=== PATIENT | female | born 1980 | race Caucasian/White ===

== ENCOUNTER 2022-06-04 15:47 | Observation (INO) ==
[2022-06-04] MEDS ORDERED: FIORICET TAB PO PRN (17:45)
[2022-06-04 18:11] LABS: BASOPHILS # (AUTO) 0.1 X10^3/uL (0.0-0.1); BASOPHILS % (AUTO) 1.5 % (0.2-1.0); EOSINOPHILS # (AUTO) 0.8 x10^3/uL (0.0-0.2); EOSINOPHILS % (AUTO) 9.6 % (0.9-2.9); HEMATOCRIT 36.2 % (36.0-47.0); HEMOGLOBIN 12.8 g/dL (12.0-16.0); LYMPHOCYTES # (AUTO) 2.1 X10^3/uL (1.3-2.9); LYMPHOCYTES % (AUTO) 26.6 % (21.0-51.0); MEAN CORPUSCULAR HEMOGLOBIN 31.6 pg (27.0-34.0); MEAN CORPUSCULAR HGB CONC 35.4 g/dL (33.0-35.0); MEAN CORPUSCULAR VOLUME 89.3 fL (80.0-100.0); MEAN PLATELET VOLUME 7.2 fL (7.4-11.0); MONOCYTES # (AUTO) 0.4 x10^3/uL (0.3-0.8); NEUTROPHILS # (AUTO) 4.5 x10^3/uL (2.2-4.8); NEUTROPHILS % (AUTO) 57.3 % (42.0-75.0); RED BLOOD COUNT 4.05 X10^6/uL (3.5-5.4); RED CELL DISTRIBUTION WIDTH 12.1 % (11.6-16.5); WHITE BLOOD COUNT 7.9 X10^3/uL (3.6-10.0)
[2022-06-04 18:30] LABS: ALANINE AMINOTRANSFERASE 20 Units/L (12-78); ALBUMIN 3.3 g/dL (3.4-5.0); ALKALINE PHOSPHATASE 53 Units/L (46-116); ASPARTATE AMINO TRANSFERASE 29 Units/L (15-37); BLOOD UREA NITROGEN 9 mg/dL (7-18); CALCIUM 8.4 mg/dL (8.5-10.1); CARBON DIOXIDE 29.9 mmol/L (21-32); CHLORIDE 107 mmol/L (98-107); CREATININE 0.65 mg/dL (0.55-1.02); SODIUM 143 mmol/L (136-145); TOTAL PROTEIN 6.2 g/dL (6.4-8.2); TSH (3RD GENERATION) 0.447 uIU/mL (0.358-3.74); eGFR NON BLACK RACES > 60 (>60)
[2022-06-04] MEDS: NS 1,000 ML IV 1,000 ML IV SCH (19:16)
[2022-06-04] MEDS ORDERED: MICRO K EXTEN CAP 10 MEQ PO PRN (20:34)
[2022-06-04] MEDS ORDERED: KLOR-CON PO PRN (20:34)
[2022-06-04] MEDS ORDERED: K-DUR TAB 20 MEQ PO PRN (20:34)
[2022-06-05] MEDS: TORADOL 30 MG VIAL IVP PRN ×2 (00:18→08:20)
[2022-06-05 06:17] LABS: BASOPHILS # (AUTO) 0.1 X10^3/uL (0.0-0.1); BASOPHILS % (AUTO) 1.3 % (0.2-1.0); EOSINOPHILS # (AUTO) 0.8 x10^3/uL (0.0-0.2); EOSINOPHILS % (AUTO) 11.9 % (0.9-2.9); HEMATOCRIT 37.9 % (36.0-47.0); HEMOGLOBIN 13.2 g/dL (12.0-16.0); LYMPHOCYTES # (AUTO) 2.3 X10^3/uL (1.3-2.9); LYMPHOCYTES % (AUTO) 32.6 % (21.0-51.0); MEAN CORPUSCULAR HEMOGLOBIN 30.9 pg (27.0-34.0); MEAN CORPUSCULAR HGB CONC 34.7 g/dL (33.0-35.0); MEAN PLATELET VOLUME 7.3 fL (7.4-11.0); MONOCYTES # (AUTO) 0.4 x10^3/uL (0.3-0.8); MONOCYTES % (AUTO) 5.2 % (0.0-13.0); NEUTROPHILS # (AUTO) 3.5 x10^3/uL (2.2-4.8); RED BLOOD COUNT 4.26 X10^6/uL (3.5-5.4); RED CELL DISTRIBUTION WIDTH 12.5 % (11.6-16.5); WHITE BLOOD COUNT 7.1 X10^3/uL (3.6-10.0)
[2022-06-05 06:32] LABS: ALANINE AMINOTRANSFERASE 18 Units/L (12-78); ALBUMIN 3.2 g/dL (3.4-5.0); ALKALINE PHOSPHATASE 48 Units/L (46-116); ASPARTATE AMINO TRANSFERASE 24 Units/L (15-37); BLOOD UREA NITROGEN 8 mg/dL (7-18); CALCIUM 8.1 mg/dL (8.5-10.1); CARBON DIOXIDE 24.7 mmol/L (21-32); CHLORIDE 109 mmol/L (98-107); COR CA(FOR HYPOALB) 8.7 mg/dL (8.5-10.1); CREATININE 0.61 mg/dL (0.55-1.02); SODIUM 143 mmol/L (136-145); TOTAL PROTEIN 6.2 g/dL (6.4-8.2); eGFR NON BLACK RACES > 60 (>60)
[2022-06-05] MEDS: NS 1,000 ML IV 1,000 ML IV SCH ×2 (08:20→19:57)
--- NOTE | 2022-06-05 12:38 | DR.H&P ---
H&P - History & Physical for Day of: H&P Date: 06/04/22 - Chief Complaint Chief Complaint: INTRACTABLE HEADACHE, DIZZINESS - History of Present Illness History of Present Illness: IS A 41 YEAR OLD PATIENT OF OURS. SHE PRESENTED TO THE HOSPITAL A DIRECT ADMISSION DUE TO COMPLAINTS OF SEVERE, INTRACTABLE HEADACHE FOR THE PAST 18 DAYS. PATIENT DESCRIBES PAIN THROBBING, POUNDING, AND CONSTANT. PAIN IS LOCATED TO THE LEFT OCCIPITAL LOBE. SHE RATES PAIN A 8/10 ON ARRIVAL. AGGRAVATING FACTORS INCLUDE MOVEMENT. SHE DENIES PHOTOPHOBIA, NAUSEA, OR VOMITING. SHE DOES ADMIT TO DIZZINESS AT TIMES. SHE WAS PRESCRIBED IBUPROFEN 800MG AND FIORICET TABLETS IN THE OFFICE. SHE REPORTS ONLY MILD IMPROVEMENT IN PAIN WHEN TAKING THE IBUPROFEN AND FIORICET. SHE WAS SEEN AT [facility] IN [place], [place] ON 05/27/22. SHE HAD A NEGATIVE BRAIN CT AT THAT TIME. ADDITIONALLY, SHE HAD NEGATIVE LABWORK WITH THE EXCEPTION OF HER TSH INDICATING THAT HER THYROID WAS HYPERACTIVE. PATIENT REPORTS A HISTORY OF HYPOTHYROIDISM AND REPORTS THAT HER MEDICATION DOSAGE HASNT CHANGED IN YEARS. SHE REPORTS HAVING AN ELEVATED TSH A FEW MONTHS AGO. ON ARRIVAL TO THE HOSPITAL, VITALS WERE: 98.4-20-75-98%-158/89. LABS WERE OBTAINED. WBC 7.9, RBC 4.05, HGB 12.8, HCT 36.2, PLT COUNT 252, SODIUM 143, POTASSIUM 3.7, CHLORIDE 107, CARBON DIOXIDE 29.9, BUN 9, CREATININE 0.65, GLUCOSE 98, CALCIUM 8.4, TOTAL BILI 0.30, AST 29, ALT 20, ALK PHOS 53, TOTAL PROTEIN 6.2, ALBUMIN 3.3, FREE T4 1.00, TSH 3RD 0.447. COVID, INFLUENZA, AND RSV NEGATIVE. SHE WAS STARTED ON NORMAL SALINE AT 80 ML/HR, FIORICET 2 TABS PO Q8H PRN, DEPAKOTE 250MG PO BID, N APROSYN 500MG BID, AND TORADOL 30MG IV Q6H PRN. WE WILL RESUME HER HOME MEDICATIONS OF PRAMIPEXOLE, PANTOPRAZOLE, SYNTHROID, AND FOLIC ACID. WE WILL OBTAIN A BRAIN MRI WITHOUT CONTRAST AND A THYROID ULTRASOUND. OTHERWISE, WE WILL FOLLOW-UP WITH AM LABS AND CONTINUE TO MONITOR. TIME SPENT ON CLINICAL ASSESSMENT, REVIWING LABS AND IMAGING, DECISION MAKING, AND DOCUMENTATION GREATER THAN 75 MINUTES. - Past Medical History Past Medical History: GERD, Hypothyroidism - Past Surgical History Surgical History: , Cholecystectomy - Family History Family Medical History: Diabetes Mellitus, Cancer, Hypertension - Social History Alcohol Use: None Drug Use: None - Medications Home Medications: No Known Drug Allergies Allergy (Verified 10/19/18 07:58) onion Allergy (Verified 06/04/22 17:40) CONTINUE taking the following medications folic acid 1 mg tablet 1 tab PO QDAY 06/04/22 [History] ibuprofen 600 mg tablet 1 tab PO TID PRN 06/04/22 [History] levothyroxine 175 mcg tablet (Synthroid) 1 tab PO QDAY 06/04/22 [History] pramipexole 0.25 mg tablet 1 tab PO QPM 06/04/22 [History] - Review of Systems Constitutional: No Symptoms Reported Eyes: No Symptoms Reported ENT: No Symptoms Reported Respiratory: No Symptoms Reported Cardiovascular: Light Headedness Gastrointestinal: No Symptoms Reported Genitourinary: No Symptoms Reported Musculoskeletal: No Symptoms Reported Skin: No Symptoms Reported Neurological: Other (HEADACHE ) - Physical Exam Vital Signs: Temperature 97.8 F Pulse Rate [Right] 78 Respiratory Rate 16 Blood Pressure [Left Arm] 138/69 Blood Pressure 108/71 O2 Sat by Pulse Oximetry 98 Oriented: Normal Eyes: Normal Ear: Normal Nose: Normal Throat: Normal Respiratory: Clear Throughout Cardiovascular: Normal : Normal Auscultation: Bowel Sounds: Normal Palpation: Normal Tenderness: Normal Skin: Normal Musculoskeletal: Normal Psychiatric: Normal Mood Description: Calm Affect: Normal Speech Pattern: Clear - Assessment/Plan (1) Intractable headache Qualifiers: Headache type: unspecified Headache chronicity pattern: acute headache Qualified Code(s): R51.9 - Headache, unspecified Status: Acute Plan: ADMIT, NORMAL SALINE AT 80 ML/HR, FIORICET 2 TABS PO Q8H PRN, DEPAKOTE 250MG PO BID, NAPROSYN 500MG BID, AND TORADOL 30MG IV Q6H PRN. WE WILL RESUME HER HOME MEDICATIONS OF PRAMIPEXOLE, PANTOPRAZOLE, SYNTHROID, AND FOLIC ACID. OBTAIN BRAIN MRI, OBTAIN THYROID US (2) Dizziness Status: Acute (3) Hypothyroidism Qualifiers: Hypothyroidism type: acquired Qualified Code(s): E03.9 - Hypothyroidism, unspecified Status: Chronic (4) GERD (gastroesophageal reflux disease) Qualifiers: Esophagitis presence: esophagitis presence not specified Qualified Code(s): K21.9 - Gastro-esophageal reflux disease without esophagitis Status: Chronic - Allergies Allergies/Adverse Reactions: Allergies Allergy/AdvReac Type Severity Reaction Status Date / Time No Known Drug Allergies Allergy Verified 10/19/18 07:58 onion Allergy Verified 06/04/22 17:40
[2022-06-05] MEDS: DEPAKOTE D.R. TAB PO SCH ×2 (13:31→20:46)
[2022-06-05] MEDS: NAPROSYN PO SCH ×2 (13:32→20:46)
[2022-06-05] MEDS: PROTONIX TAB 40 MG PO SCH ×2 (13:32→20:47)
[2022-06-05] MEDS: INDERAL LA 60 MG CAP PO SCH (16:15)
[2022-06-05] MEDS: SYNTHROID 175 mcg TAB PO SCH (16:45)
--- NOTE | 2022-06-05 16:51 | US ---
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 Left lobe measures 2.0 x 0.8 x 1.0 cm. Echotexture is heterogeneous. No increased vascularity is seen. No jugular lymphadenopathy is seen.In the posterior aspect of the right lobe there is a well-circumscribed hypoechoic nodule measuring 7 x 4 x 5 mm, TI rads level 4.In the left lobe there is a rim calcified cyst or nodule with calcifications limiting evaluation. It measures 7 x 7 x 6 mm. It is TI rads level 4.IMPRESSIONTwo small thyroid nodules are seen. No further follow-up is needed based upon TI rads criteria.Electronically signed by: Waqar Feliciano (Jun 05, 2022 16:49:44)
[2022-06-05] MEDS ORDERED: MIRAPEX TAB 0.25 MG PO SCH (21:00)
[2022-06-06 05:55] LABS: BASOPHILS # (AUTO) 0.1 X10^3/uL (0.0-0.1); BASOPHILS % (AUTO) 0.8 % (0.2-1.0); EOSINOPHILS # (AUTO) 0.9 x10^3/uL (0.0-0.2); EOSINOPHILS % (AUTO) 9.5 % (0.9-2.9); HEMATOCRIT 35.1 % (36.0-47.0); HEMOGLOBIN 12.6 g/dL (12.0-16.0); LYMPHOCYTES # (AUTO) 2.3 X10^3/uL (1.3-2.9); LYMPHOCYTES % (AUTO) 23.2 % (21.0-51.0); MEAN CORPUSCULAR HEMOGLOBIN 31.7 pg (27.0-34.0); MEAN CORPUSCULAR HGB CONC 35.8 g/dL (33.0-35.0); MEAN CORPUSCULAR VOLUME 88.6 fL (80.0-100.0); MEAN PLATELET VOLUME 7.6 fL (7.4-11.0); MONOCYTES # (AUTO) 0.5 x10^3/uL (0.3-0.8); MONOCYTES % (AUTO) 5.5 % (0.0-13.0); RED BLOOD COUNT 3.96 X10^6/uL (3.5-5.4); RED CELL DISTRIBUTION WIDTH 12.4 % (11.6-16.5); WHITE BLOOD COUNT 9.8 X10^3/uL (3.6-10.0)
[2022-06-06 06:15] LABS: ALANINE AMINOTRANSFERASE 18 Units/L (12-78); ALBUMIN 2.9 g/dL (3.4-5.0); ALKALINE PHOSPHATASE 45 Units/L (46-116); ASPARTATE AMINO TRANSFERASE 23 Units/L (15-37); BLOOD UREA NITROGEN 8 mg/dL (7-18); CALCIUM 8.1 mg/dL (8.5-10.1); CARBON DIOXIDE 25.1 mmol/L (21-32); CHLORIDE 109 mmol/L (98-107); CREATININE 0.56 mg/dL (0.55-1.02); SODIUM 141 mmol/L (136-145); TOTAL PROTEIN 5.5 g/dL (6.4-8.2); eGFR NON BLACK RACES > 60 (>60)
[2022-06-06] MEDS ORDERED: KLOR-CON PO PRN (06:41)
[2022-06-06] MEDS: NAPROSYN PO SCH (08:30)
[2022-06-06] MEDS: SYNTHROID 175 mcg TAB PO SCH (08:30)
[2022-06-06] MEDS: DEPAKOTE D.R. TAB PO SCH (08:31)
[2022-06-06] MEDS: PROTONIX TAB 40 MG PO SCH (08:31)
[2022-06-06] MEDS: INDERAL LA 60 MG CAP PO SCH (08:31)
[2022-06-06] MEDS: NS 1,000 ML IV 1,000 ML IV SCH (08:32)
[2022-06-06] MEDS ORDERED: FOLIC ACID TAB 1 MG PO SCH (09:00)
[2022-06-06] MEDS: TORADOL 30 MG VIAL IVP PRN (11:26)
[2022-06-06 13:02] VITALS: BP 116/68
--- NOTE | 2022-06-07 10:29 | W.DIS.FURT ---
Summary of Discharge Discharge Summary of Date Date of Exam: 06/06/22 Admission Date Date of Admission: 06/05/22 Admission Diagnosis Patient Problems (Updated 06/05/22 @ 12:38 by Bola Orta) Intractable headache (Acute) R51.9 Dizziness (Acute) R42 Hypothyroidism (Chronic) E03.9 GERD (gastroesophageal reflux disease) (Chronic) K21.9 Hospital Course: Pt is a 41 year old female past medical history of Hypothyroidism admitted for intractable headache. She reports symptoms have been occurring for over a month. Labs/imaging: Wbc 9.8, Hgb 12.6, Plt 259, Na 141, K 3.7, Creatinine 0.56, Glucose 103. Pt does not report or are there any signs of neurological deficits, nausea, vomiting, vision or vision changes. MRI ordered however machine is down and not available for a few days. CTA head was ordered but not approved by insurance. Pt states she wants to go home and will continue her care outpatient with her pcp. Pt discharged in stable condition, instructed to follow up with pcp in 1 week. Vital Signs: Vital Signs (72 hours) 06/04/22 17:31 06/04/22 19:04 06/04/22 20:04 Temperature Pulse Rate [Right] Respiratory Rate 20 20 Blood Pressure [Left Arm] O2 Sat by Pulse Oximetry Oxygen Delivery Method Room Air 06/04/22 19:00 06/04/22 20:00 06/05/22 00:18 Temperature 98.4 F Pulse Rate [Right] Respiratory Rate 20 24 Blood Pressure [Left Arm] 158/89 O2 Sat by Pulse Oximetry 98 Oxygen Delivery Method Room Air Room Air 06/05/22 00:00 06/05/22 00:48 06/05/22 04:00 Temperature 98.0 F 98 F Pulse Rate [Right] 75 79 Respiratory Rate 20 18 14 Blood Pressure [Left Arm] 141/63 123/60 O2 Sat by Pulse Oximetry 98 97 Oxygen Delivery Method Room Air Room Air 06/05/22 07:57 06/05/22 08:20 06/05/22 08:50 Temperature 97.8 F Pulse Rate [Right] 78 Respiratory Rate 18 20 16 Blood Pressure [Left Arm] 138/69 O2 Sat by Pulse Oximetry 98 Oxygen Delivery Method Room Air 06/05/22 12:00 06/05/22 18:05 06/05/22 18:07 Temperature 98.0 F 98.1 F Pulse Rate [Right] 68 70 Respiratory Rate 18 18 Blood Pressure [Left Arm] 133/77 126/78 O2 Sat by Pulse Oximetry 99 97 Oxygen Delivery Method Room Air Room Air Room Air 06/05/22 20:00 06/05/22 19:00 06/06/22 00:00 Temperature 98 F 98.4 F Pulse Rate [Right] 73 67 Respiratory Rate 20 18 Blood Pressure [Left Arm] 145/67 118/59 O2 Sat by Pulse Oximetry 99 96 Oxygen Delivery Method Room Air Room Air Room Air 06/06/22 04:00 06/06/22 11:26 Temperature 98.3 F Pulse Rate [Right] 79 Respiratory Rate 20 20 Blood Pressure [Left Arm] 120/53 O2 Sat by Pulse Oximetry 98 Oxygen Delivery Method Room Air Labs: Laboratory Last Values WBC 9.8 X10^3/uL (3.6-10.0) 06/06/22 05:16 RBC 3.96 X10^6/uL (3.5-5.4) 06/06/22 05:16 Hgb 12.6 g/dL (12.0-16.0) 06/06/22 05:16 Hct 35.1 % (36.0-47.0) L 06/06/22 05:16 MCV 88.6 fL (80.0-100.0) 06/06/22 05:16 MCH 31.7 pg (27.0-34.0) 06/06/22 05:16 MCHC 35.8 g/dL (33.0-35.0) H 06/06/22 05:16 RDW 12.4 % (11.6-16.5) 06/06/22 05:16 Plt Count 259 X10^3/uL (150.0-450.0) 06/06/22 05:16 MPV 7.6 fL (7.4-11.0) 06/06/22 05:16 Neut % (Auto) 61.0 % (42.0-75.0) 06/06/22 05:16 Lymph % (Auto) 23.2 % (21.0-51.0) 06/06/22 05:16 Kings % (Auto) 5.5 % (0.0-13.0) 06/06/22 05:16 Eos % (Auto) 9.5 % (0.9-2.9) H 06/06/22 05:16 Baso % (Auto) 0.8 % (0.2-1.0) 06/06/22 05:16 Neut # (Auto) 6.0 x10^3/uL (2.2-4.8) H 06/06/22 05:16 Lymph # (Auto) 2.3 X10^3/uL (1.3-2.9) 06/06/22 05:16 Kings # (Auto) 0.5 x10^3/uL (0.3-0.8) 06/06/22 05:16 Eos # (Auto) 0.9 x10^3/uL (0.0-0.2) H 06/06/22 05:16 Baso # (Auto) 0.1 X10^3/uL (0.0-0.1) 06/06/22 05:16 Absolute Nucleated RBC 0.0 /100WBC 06/06/22 05:16 Sodium 141 mmol/L (136-145) 06/06/22 05:16 Corrected Sodium TNP 06/06/22 05:16 Potassium 3.7 mmol/L (3.5-5.1) 06/06/22 05:16 Chloride 109 mmol/L (98-107) H 06/06/22 05:16 Carbon Dioxide 25.1 mmol/L (21-32) 06/06/22 05:16 BUN 8 mg/dL (7-18) 06/06/22 05:16 Creatinine 0.56 mg/dL (0.55-1.02) 06/06/22 05:16 Est GFR (MDRD) Af Amer > 60 (>60) 06/06/22 05:16 Est GFR (MDRD) Non-Af > 60 (>60) 06/06/22 05:16 Glucose 103 mg/dL (65-99) H 06/06/22 05:16 Calcium 8.1 mg/dL (8.5-10.1) L 06/06/22 05:16 Corrected Calcium 9.0 mg/dL (8.5-10.1) 06/06/22 05:16 Total Bilirubin 0.30 mg/dL (0.2-1.0) 06/06/22 05:16 AST 23 Units/L (15-37) 06/06/22 05:16 ALT 18 Units/L (12-78) 06/06/22 05:16 Alkaline Phosphatase 45 Units/L (46-116) L 06/06/22 05:16 Total Protein 5.5 g/dL (6.4-8.2) L 06/06/22 05:16 Albumin 2.9 g/dL (3.4-5.0) L 06/06/22 05:16 Globulin 2.6 g/dL (2.5-4.5) 06/06/22 05:16 Albumin/Globulin Ratio 1.1 Ratio (1.1-2.1) 06/06/22 05:16 Free T4 1.00 ng/dL (0.76-1.46) 06/04/22 17:55 TSH 3rd Generation 0.447 uIU/mL (0.358-3.74) 06/04/22 17:55 SARS-CoV-2 (PCR) Negative (NEGATIVE) 06/04/22 18:40 Influenza Type A (PCR) Negative (NEGATIVE) 06/04/22 18:40 Influenza Type B (PCR) Negative (NEGATIVE) 06/04/22 18:40 RSV (PCR) Negative (NEGATIVE) 06/04/22 18:40 Reason For Visit: UNCONTROLLED HTN, INTRACTABLE MIGRAINE Discharge Date Discharge Date: 06/06/22 Discharge Diagnosis All Active Problems (Updated 06/05/22 @ 12:38 by Bola Orta) Intractable headache (Acute) Dizziness (Acute) Hypothyroidism (Chronic) GERD (gastroesophageal reflux disease) (Chronic) Plan of Treatment: Continue with present treatment and follow up plan. Pt is to keep follow up appointment as instructed and take medications as ordered. Discharge Medications Discharge Medications: No Known Drug Allergies Allergy (Verified 10/19/18 07:58) onion Allergy (Verified 06/04/22 17:40) CONTINUE taking the following medications folic acid 1 mg tablet 1 tab PO QDAY 06/04/22 [History] ibuprofen 600 mg tablet 1 tab PO TID PRN 06/04/22 [History] levothyroxine 175 mcg tablet (Synthroid) 1 tab PO QDAY 06/04/22 [History] pramipexole 0.25 mg tablet 1 tab PO QPM 06/04/22 [History] New Prescriptions divalproex 250 mg tablet,delayed release 250 mg PO BID 06/06/22 [Rx] propranolol 60 mg capsule,24 hr,extended release 60 mg PO DAILY 06/06/22 [Rx] Discharge Disposition Discharge Disposition: Home Discharge Condition: Stable Discharge Plan Discharge Plan Hospital Course: Pt is a 41 year old female past medical history of Hypothyroidism admitted for intractable headache. She reports symptoms have been occurring for over a month. Labs/imaging: Wbc 9.8, Hgb 12.6, Plt 259, Na 141, K 3.7, Creatinine 0.56, Glucose 103. Pt does not report or are there any signs of neurological deficits, nausea, vomiting, vision or vision changes. MRI ordered however machine is down and not available for a few days. CTA head was ordered but not approved by insurance. Pt states she wants to go home and will continue her care outpatient with her pcp. Pt discharged in stable condition, instructed to follow up with pcp in 1 week. Patient Disposition: HOME, SELF-CARE Condition: Stable Health Concerns: Post Hospitalization: new medications and changes needed to prevent readmission or further decline. Pt educated and given instructions on all concerns. Care Plan Goals: Problem: Pain/Alteration in Comfort Goal: Improve/ Resolve Pain; Achieve Pain Tolerance Instructions: Take pain medications as prescribed. Contact your primary care provider if your pain is unrelieved or worsens. Follow up with primary care provider as directed. Plan of Treatment: Continue with present treatment and follow up plan. Pt is to keep follow up appointment as instructed and take medications as ordered. Prescriptions: New divalproex 250 mg Tablet,Delayed Release (Dr/Ec) 250 mg PO BID 0RF propranolol 60 mg Capsule,Extended Release 24 Hr 60 mg PO DAILY 0RF Continued pantoprazole 40 mg Tablet,Delayed Release (Dr/Ec) 40 mg PO BID levothyroxine [Synthroid] 175 mcg tablet 1 tab PO QDAY folic acid 1 mg tablet 1 tab PO QDAY pramipexole 0.25 mg tablet 1 tab PO QPM ibuprofen 600 mg tablet 1 tab PO TID PRN Orders to Discharge Patient Discharge Orders: Discharge (Routine); Ordered 06/06/22 Ordered By: Alfonso Casas Follow ups/Referrals Follow ups/Referrals: PAULY ALFONSO [Primary Care Provider] - 1 WEEK Instructions Instructions: Migraine Headache, [id number], Magnetic Resonance Imaging, [id number], Dizziness, [id number] Activity Restrictions/Additional Instructions: CALL DR. ORTA'S AND/OR PAULY ALFONSO, [facility] OFFICE ON WEDNESDAY TO SCHEDULE A FOLLOW UP APPOINTMENT AND TO SCHEDULE OUTPATIENT MRI. Stand Alone Forms: Excuse From Work or School
== END 2022-06-06 13:22 | disposition home or self-care (01) ==
LOC: MED/SURG
PROVIDERS: ADMIT Internal Medicine; ATTEND Internal Medicine
DX: Z79.899 Other long term (current) drug therapy; R42 Dizziness and giddiness; Z20.822 Contact with and (suspected) exposure to COVID-19; I10 Essential (primary) hypertension; E03.8 Other specified hypothyroidism; G43.819 Other migraine, intractable, without status migrainosus; K21.9 Gastro-esophageal reflux disease without esophagitis